=== PATIENT | male | born 1940 | race Caucasian/White ===

== ENCOUNTER 2017-11-23 18:22 | Inpatient (IN) | payer MEDICARE, BC ==
[~2017-11-23 18:22] MED LIST: ISOVUE-370 76%-LOCM 1 ML ONE
[2017-11-23 18:47] LABS: #Basophils 0.1 thou/uL (0.0-0.2); #Lymphocytes 0.5 thou/uL (1.20-3.40); #Monocytes 0.9 thou/uL (0.11-0.59); #Neutrophils 7.3 thou/uL (1.40-6.50); %Basophils 0.7 % (0.0-1.0); %Eosinophils 0.2 % (0.0-10.0); %Lymphocytes 5.3 % (21.0-51.0); %Monocytes 10.1 % (0.0-10.0); %Neutrophils 83.6 % (42.0-75.0); Hemoglobin 14.6 g/dL (14.0-18.0); Mean Corpuscular HGB CONC 35.8 g/dL (32.0-36.0); Mean Corpuscular Hemoglobin 31.3 pg (27.0-31.0); Mean Corpuscular Volume 87.4 fL (78.0-98.0); Mean Platelet Volume 7.1 fL (7.4-10.4); Platelet Count 183 thou/uL (130-400); RBC Distribution Width 11.9 % (11.5-14.5); Red Blood Cell (RBC) Count 4.67 mill/uL (4.70-6.10); White Blood Cell (WBC) Count 8.7 thou/uL (4.8-10.8)
[2017-11-23 18:58] LABS: ALT (SGPT) 284 U/L (8-55); AST (SGOT) 326 U/L (5-34); Albumin 3.8 g/dL (3.4-4.8); Alkaline Phosphatase 425 U/L (40-150); Anion Gap 15 mmol/L (10-20); BUN (Urea Nitrogen) 21 mg/dL (8.4-25.7); Bilirubin, Total 3.1 mg/dL (0.2-1.2); CK (CPK) 126 U/L (30-200); Calc. Creatinine Clearance 0 mL/min (70-130); Calcium 9.4 mg/dL (7.8-10.44); Carbon Dioxide 25 mmol/L (23-31); Chloride 99 mmol/L (98-107); Estimated GFR-MDRD Greater than 90; Globulin 3.3 g/dL (2.4-3.5); Glucose 118 mg/dL (83-110); Potassium 3.7 mmol/L (3.5-5.1); Protein, Total 7.1 g/dL (5.8-8.1); Sodium 135 mmol/L (136-145)
[2017-11-23 19:00] LABS: CKMB 0.7 ng/mL (0-6.6); Troponin I Less than 0.010 ng/mL (< 0.028)
[2017-11-23] MEDS ORDERED: Acetaminophen 500 MG TAB ONE (19:08)
[2017-11-23] MEDS ORDERED: cefTRIAXone\\ROCEPHIN 2 GM VIAL ONE (19:08)
[2017-11-23] MEDS ORDERED: Sodium Chloride 0.9% 100 ML ONE (19:09)
[2017-11-23 19:28] LABS: Bilirubin Moderate (Negative); Blood, Urine Negative (Negative); Clarity Clear (Clear); Glucose, Urine (Dipstick) Negative (Negative); Leukocyte Negative (Negative); Nitrite Negative (Negative); Protein, Urine (Dipstick) Negative (Neg-Trace); Specific Gravity, Urine 1.015 (1.005-1.030); Urobilinogen > or = 8.0 mg/dL (0.2-1.0); pH, Urine 6.5 (5.0-9.0)
--- NOTE | 2017-11-23 19:37 | RAD ---
TWO VIEW CHEST SERIES: INDICATIONS: Chest pain. COMPARISON: 06/27/2016 FINDINGS: There is a left basilar opacity, wedge shaped in appearance, with adjacent left pleural-based irregul arity and blunting of the left costophrenic sulcus. The cardiac silhouette is stable. There is no d iscrete pneumothorax. IMPRESSION: Atelectasis versus pneumonia of the left lower lobe with adjacent mild volume pleural fluid. Recomme nd radiographic followup to resolution. POS: [facility]
--- NOTE | 2017-11-23 20:44 | ULT ---
GALLBLADDER ULTRASOUND: INDICATIONS: Fever with elevated liver function enzymes and elevated bilirubin values. FINDINGS: No focal hepatic lesion. There is no acute gallbladder pathology. The common duct is normal at 5 mm . No ascites. IMPRESSION: 1. No acute gallbladder pathology. 2. No abnormal biliary ductal dilatation. POS: [facility]
[2017-11-23] MEDS ORDERED: Sodium Chloride 0.9% 1,000 ML IV SCH (21:21)
[2017-11-23] MEDS ORDERED: Acetaminophen 325 MG TAB PO PRN (21:21)
[2017-11-23 21:50] VITALS: BMI 25.9
[2017-11-23] MEDS ORDERED: Ondansetron HCl/PF 4 MG/2 ML Vial IVP PRN (22:25)
--- NOTE | 2017-11-23 23:51 | CT ---
CTA CHEST WITH CONTRAST WITH 3D VOLUME RENDERING REFORMATTED IMAGING: CLINICAL HISTORY: Positive D-dimer. Chest pain. FINDINGS: No significant filling defect of the pulmonary arterial system. The thoracic aorta is nonacute in ap pearance. There is scattered patchy density of the lungs bilaterally, which may be on the basis of i nterstitial lung disease, such as mild pulmonary fibrosis. No pneumothorax or pleural effusion. Pun ctate hypodensity of the incidentally imaged caudate lobe of the liver is too small to further charac terize. There is osseous degenerative change. IMPRESSION: No evidence of acute pulmonary embolus. Additional details are as discussed above. POS: [facility]
[2017-11-24] MEDS: Sodium Chloride 0.9% 1,000 ML IV SCH ×3 (02:31→19:37)
[2017-11-24] MEDS ORDERED: HYDROcodone/Acetaminophen 5/325 mg Tablet PO PRN ×2 (03:32→05:18)
[2017-11-24 05:10] LABS: #Lymphocytes 0.9 thou/uL (1.20-3.40); #Neutrophils 6.3 thou/uL (1.40-6.50); %Basophils 0.4 % (0.0-1.0); %Eosinophils 0.4 % (0.0-10.0); %Lymphocytes 10.7 % (21.0-51.0); %Monocytes 11.8 % (0.0-10.0); %Neutrophils 76.7 % (42.0-75.0); Hemoglobin 13.3 g/dL (14.0-18.0); Mean Corpuscular HGB CONC 34.3 g/dL (32.0-36.0); Mean Corpuscular Hemoglobin 32.8 pg (27.0-31.0); Mean Corpuscular Volume 95.6 fL (78.0-98.0); Mean Platelet Volume 7.5 fL (7.4-10.4); Platelet Count 177 thou/uL (130-400); RBC Distribution Width 12.9 % (11.5-14.5); Red Blood Cell (RBC) Count 4.05 mill/uL (4.70-6.10); White Blood Cell (WBC) Count 8.2 thou/uL (4.8-10.8)
[2017-11-24 05:22] LABS: Anion Gap 13 mmol/L (10-20); BUN (Urea Nitrogen) 15 mg/dL (8.4-25.7); Calc. Creatinine Clearance 102 mL/min (70-130); Calcium 8.6 mg/dL (7.8-10.44); Carbon Dioxide 24 mmol/L (23-31); Chloride 104 mmol/L (98-107); Estimated GFR-MDRD Greater than 90; Glucose 95 mg/dL (83-110); Potassium 3.4 mmol/L (3.5-5.1); Sodium 138 mmol/L (136-145)
[2017-11-24 05:24] LABS: ALT (SGPT) 205 U/L (8-55); AST (SGOT) 180 U/L (5-34); Albumin 3.2 g/dL (3.4-4.8); Alkaline Phosphatase 339 U/L (40-150); Bilirubin, Direct 2.8 mg/dL (0.1-0.3); Bilirubin, Total 3.9 mg/dL (0.2-1.2); Protein, Total 5.7 g/dL (5.8-8.1)
[2017-11-24] MEDS: Levothyroxine Sodium 50 MCG TAB PO SCH (06:08)
[2017-11-24] MEDS: ALPRAZolam 0.25 MG TAB PO SCH (09:08)
[2017-11-24] MEDS: Tamsulosin HCl 0.4 MG CAP PO SCH (09:08)
[2017-11-24] MEDS: Enoxaparin Sodium 40 MG/0.4 ML SYRINGE SC SCH (09:09)
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
[2017-11-24 15:26] LABS: HBCM Index 0.07 S/CO (0-0.79); HBSAg Index 0.25 S/CO (0-0.99); Hep A IgM AB Non-Reactive (NonReactive); Hep A IgM S/CO 0.11 S/CO (0-0.79); Hep B Surf Ag Non-Reactive S/CO (NonReactive); Hep C IgG Ab Non-Reactive (NonReactive); Hep C Index 0.15 S/CO (0-0.79); Hepatitis B Core IGM Abs Non-Reactive (NonReactive)
[2017-11-24] MEDS ORDERED: cefTRIAXone\\ROCEPHIN 1 GM in Sodium Chloride 0.9% 100 ML IVPB SCH (18:00)
[2017-11-24] MEDS ORDERED: Azithromycin 500 MG in Sodium Chloride 0.9% 250 ML 250 ML IVPB SCH (20:00)
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
[2017-11-25 05:33] LABS: ALT (SGPT) 142 U/L (8-55); AST (SGOT) 95 U/L (5-34); Albumin 3.2 g/dL (3.4-4.8); Alkaline Phosphatase 320 U/L (40-150); Bilirubin, Direct 1.1 mg/dL (0.1-0.3); Bilirubin, Total 1.8 mg/dL (0.2-1.2)
[2017-11-25] MEDS: Sodium Chloride 0.9% 1,000 ML IV SCH (06:06)
[2017-11-25] MEDS: Levothyroxine Sodium 50 MCG TAB PO SCH (06:06)
[2017-11-25 08:29] VITALS: BP 117/74; TEMP 97.9
[2017-11-25] MEDS: Enoxaparin Sodium 40 MG/0.4 ML SYRINGE SC SCH (09:09)
[2017-11-25] MEDS: ALPRAZolam 0.25 MG TAB PO SCH (09:09)
[2017-11-25] MEDS: Tamsulosin HCl 0.4 MG CAP PO SCH (09:09)
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
== END 2017-11-25 16:39 | disposition home or self-care (01) | DRG 194 ==
LOC: SCSER 18:22 → T4-A 20:43
PROVIDERS: ADMIT Internal Medicine; ATTEND Internal Medicine
DX: J13 Pneumonia due to Streptococcus pneumoniae (principal); J98.11 Atelectasis; E87.1 Hypo-osmolality and hyponatremia; E87.6 Hypokalemia; I10 Essential (primary) hypertension; E78.5 Hyperlipidemia, unspecified; S22.20XD Unspecified fracture of sternum, subsequent encounter for fracture with routine healing; N41.9 Inflammatory disease of prostate, unspecified; R74.0 Nonspecific elevation of levels of transaminase and lactic acid dehydrogenase [LDH]; E03.9 Hypothyroidism, unspecified; N40.0 Benign prostatic hyperplasia without lower urinary tract symptoms; F41.9 Anxiety disorder, unspecified; Z87.440 Personal history of urinary (tract) infections; Z87.891 Personal history of nicotine dependence
CPT/HCPCS: 36415; 71046; 71275; 76705; 80048; 80053; 80074; 80076; 81003; 82553; 83605; 83690; 84484; 85025; 85379; 87040; 87086; 93005; 94760; 96365; 96375; A4216; J0456; J0696; J1650; J1956; J7050

== ENCOUNTER 2017-12-23 09:58 | Outpatient (CLI) | payer MEDICARE, BC ==
[2017-12-23 11:18] LABS: #Basophils 0.1 thou/uL (0.0-0.2); #Eosinphils 0.1 thou/uL (0.0-0.7); #Lymphocytes 1.4 thou/uL (1.20-3.40); #Monocytes 0.7 thou/uL (0.11-0.59); %Basophils 0.8 % (0.0-1.0); %Eosinophils 1.5 % (0.0-10.0); %Lymphocytes 17.2 % (21.0-51.0); %Monocytes 8.3 % (0.0-10.0); %Neutrophils 72.2 % (42.0-75.0); Hemoglobin 14.7 g/dL (14.0-18.0); Mean Corpuscular HGB CONC 33.4 g/dL (32.0-36.0); Mean Corpuscular Hemoglobin 32.2 pg (27.0-31.0); Mean Corpuscular Volume 96.4 fL (78.0-98.0); Mean Platelet Volume 7.4 fL (7.4-10.4); Platelet Count 250 thou/uL (130-400); Red Blood Cell (RBC) Count 4.57 mill/uL (4.70-6.10); White Blood Cell (WBC) Count 8.4 thou/uL (4.8-10.8)
[2017-12-23 11:41] LABS: ALT (SGPT) 83 U/L (8-55); AST (SGOT) 62 U/L (5-34); Albumin 3.8 g/dL (3.4-4.8); Alkaline Phosphatase 319 U/L (40-150); Anion Gap 13 mmol/L (10-20); BUN (Urea Nitrogen) 15 mg/dL (8.4-25.7); Bilirubin, Direct 0.7 mg/dL (0.1-0.3); Bilirubin, Total 1.3 mg/dL (0.2-1.2); Calc. Creatinine Clearance 0 mL/min (70-130); Calcium 9.4 mg/dL (7.8-10.44); Carbon Dioxide 24 mmol/L (23-31); Chloride 103 mmol/L (98-107); Estimated GFR-MDRD 86; Globulin 3.4 g/dL (2.4-3.5); Glucose 96 mg/dL (83-110); Potassium 3.8 mmol/L (3.5-5.1); Protein, Total 7.2 g/dL (5.8-8.1); Sodium 136 mmol/L (136-145)
== END 2017-12-23 09:59 | disposition home or self-care (01) ==
LOC: LABBT 09:58
PROVIDERS: ATTEND Surgery
DX: Z01.818 Encounter for other preprocedural examination (principal); K80.20 Calculus of gallbladder without cholecystitis without obstruction
CPT/HCPCS: 80053; 80076; 85025; 93005; 93010

== ENCOUNTER 2017-12-24 10:12 | Day surgery (SDC) | payer MEDICARE, BC ==
[2017-12-23 10:33] VITALS: BMI 25.5
[~2017-12-24 10:12] MED LIST changes: +Dexamethasone 20 MG/5 ML VIAL ONE; +Glycopyrrolate 0.2 MG/ML 5 ML SYRINGE ONE; -ISOVUE-370 76%-LOCM 1 ML ONE; +Ketorolac Tromethamine 30 MG/ML VIAL ONE; +Lidocaine 1% PF 5 ML VIAL ONE; +Ondansetron HCl/PF 4 MG/2 ML Vial ONE; +PROPOFOL 200 MG/20 ML VIAL ONE; +ePHEDrine/0.9% NaCl/PF SYRINGE 50 mg/10 ml ONE
[2017-12-24] MEDS ORDERED: cefOXitin 2 GM VIAL ONE (10:53)
[2017-12-24] MEDS ORDERED: Sodium Chloride 0.9% 100 ML ONE (10:54)
[2017-12-24] MEDS ORDERED: Bupivacaine/Epinephrine 0.25% 30 ML VIAL ONE (11:02)
[2017-12-24] MEDS ORDERED: Fentanyl 100 MCG/2 ML VIAL ONE (11:07)
[2017-12-24] MEDS ORDERED: Famotidine/PF 20 mg/2ml Vial ONE (11:07)
--- NOTE | 2017-12-24 13:27 | OP ---
DATE OF PROCEDURE: 12/24/2017 PREOPERATIVE DIAGNOSIS: History of choledocholithiasis. SURGEON: Malvin Armenta M.D. PROCEDURE PERFORMED: Laparoscopic cholecystectomy. INDICATIONS: The patient is a 77-year-old male who has been having severe epigastric pain. He had a n MRCP showing choledocholithiasis. He underwent an ERCP 6 days ago with sphincterotomy and stone ex traction. FINDINGS: Acute and chronic cholecystitis, very contracted inflamed gallbladder. PROCEDURE IN DETAIL: After informed consent was obtained, the patient was taken to the operating judi m and given general endotracheal anesthesia. He was placed in the supine position. His abdomen was prepped and draped in usual fashion. Local anesthesia infiltrated subcutaneously and deep. A subumb ilical incision was performed. The subcu divided sharply. The fascia grasped and two stay sutures o f 0 Vicryl placed to either side of midline. Midline incised. Digital palpation revealed no local a dhesions. A blunt 10-12 mm trocar inserted. Pneumoperitoneum was created to a pressure of 15 mmHg. Zero degree laparoscope inserted under direct vision, three 5 mm ports placed subcostally. The gall bladder was not visible at this time, it was encased in omentum. The omentum was taken down to expos e a very inflamed contracted gallbladder. Using careful dissection I was able to trace down to the c ystic duct and then the artery. Cystic duct was dissected out, triply ligated with Hemoclips and div ided. The artery triply ligated with Hemoclips and divided. The gallbladder was removed from its fo ssa utilizing electrocautery, placed in an Endosac and removed from the abdomen in the Endosac. Hemo stasis was achieved utilizing electrocautery as well as Willian powder. The abdomen irrigated and irr igation fluid removed. Trocars and retractors removed. The fascia closed with interrupted 0 Vicryl suture. The skin closed with interrupted 4-0 Rapide. Steri-Strips applied. Sterile bandages applie d. The patient tolerated the procedure well and was transferred to recovery in good condition. Spon ge and needle count verified correct x2.
== END 2017-12-24 13:50 | disposition home or self-care (01) ==
LOC: SDC 10:12
PROVIDERS: ATTEND Surgery
PROC: 0FT44ZZ Resection of Gallbladder, Percutaneous Endoscopic Approach (ICD-10-PCS; principal; 2017-12-24)
DX: K81.2 Acute cholecystitis with chronic cholecystitis (principal); Z79.899 Other long term (current) drug therapy
CPT/HCPCS: 88304; J0131; J0694; J1100; J1885; J2001; J2405; J2704; J3010; J7050; S0028